=== PATIENT | male | born 1980 | race Caucasian/White ===

== ENCOUNTER → 2017-12-09 10:25 | Outpatient (CLI) | payer BC | END | disposition home or self-care (01) | LOC: D.MRI 10:00 | DX: S83.222A Peripheral tear of medial meniscus, current injury, left knee, initial encounter (principal); X58.XXXA Exposure to other specified factors, initial encounter ==

== ENCOUNTER 2017-12-17 10:03 | Day surgery (SDC) | payer BC ==
[~2017-12-17] VITALS: Ht 188 cm; Wt 108.9 kg
--- NOTE | ~2017-12-17 | OP ---
PATIENT NAME: VARSHA JOHNSON MEDICAL RECORD: [id number] :79 LOCATION:[facility] ADMISSION DATE: SURGEON: SAPNA CERVANTES DO DATE OF OPERATION: 12/17/2017 PROCEDURE PERFORMED: Left knee arthroscopy with partial medial meniscectomy. PREOPERATIVE DIAGNOSIS: Left knee medial meniscal tear. POSTOPERATIVE DIAGNOSIS: Left knee medial meniscal tear. INDICATIONS: Mr. Johnson is a 37-year-old male who has had a twisting injury a few months ago, had popping, catching, locking and giving away of his knee for quite some time. Since then, he was seen by his primary care and sent to me for evaluation. He is tender along the medial joint line with Positive Agustin's and bounce home test. I told him we get an MRI, he likely had a meniscal tear, and we would discuss further. He got an MRI and it indeed showed the medial meniscal tear. The risks and benefits of the procedure of medial meniscectomy versus partial medial meniscectomy versus repair were discussed with him. He was okay with the risks and benefits including infection, bleeding, need for further surgery and other complications. He consented to the procedure. DESCRIPTION OF PROCEDURE: The patient was taken to the operative suite, laid in supine position, given 2 grams Ancef preoperatively. Once 2 grams Ancef were in, a timeout was performed, everyone was in agreement with the correct side, site, patient and procedure. The patient's left lower extremity was prepped and draped in sterile fashion. Incision then began after injections of 0.25% Marcaine with epinephrine of 2.5 mL each were placed into each of the proposed portal sites. The lateral portal was established with an 11-blade scalpel. Scope was entered in the knee. The knee was inspected. Suprapatellar pouch was clean. There were no loose bodies seen, same was the lateral gutter and medial gutter. Once the knee was flexed down, the large meniscal tear was noted, the posterior two-thirds of the medial meniscus had been torn. The posterior half of it was irreparable as it was quite shredded. We then tried to repair the small amount that was left and this was not amenable to repair either. This was chewed out with biter and shaver as was the rest of the posterior most of the meniscus. Small peripheral ring was kept, which was not torn of the medial meniscus. The lateral compartment was then inspected and no tears were seen in that meniscus. ACL was quite taut and inspected as well. The water was then turned off and the suction was turned on and excess fluid was removed from the knee. The portal sites were then closed with 4-0 Monocryl in inverted interrupted fashion with Steri-Strips placed over it. Adaptic, 4 x 4s, ABD, Webril and Madhu wrap were then placed on the knee and a PRITI hose stockinette was placed up to the knee. The patient was awakened and taken to recovery in stable condition. BLOOD LOSS: Minimal. COMPLICATIONS: None. TRANSINT:[id number] Voice Confirmation ID: [id number] DOCUMENT ID: [id number] OPERATIVE REPORT [id number] VARSHA JOHNSON,SAPNA Clark DO at 1544 CC: [id number] DICTATION DATE: 12/17/17 1458 [employer] SUPERINTENDENT: 12/17/17 1519 [facility] [address] [place] [address]
[2017-12-17 10:43] VITALS: BP 155/78; Ht 188 cm; Wt 108.9 kg
[2017-12-17] MEDS ORDERED: PERCOCET 7.5/321 TAB PO (14:52)
[2017-12-17] MEDS ORDERED: KEFLEX500 MG PO (14:53)
== END 2017-12-17 17:30 | disposition home or self-care (01) ==
LOC: D.OPS 10:03 → D.PAN 11:30 → D.OPS 11:30
DX: S83.242A Other tear of medial meniscus, current injury, left knee, initial encounter (principal); X50.1XXA Overexertion from prolonged static or awkward postures, initial encounter; Z01.812 Encounter for preprocedural laboratory examination

== ENCOUNTER → 2018-02-04 11:17 | Outpatient (CLI) | payer BC ==
[2017-12-17 10:43] VITALS: BMI 30.8
[~2018-02-04 11:17] MED LIST: KEFLEX500 MG PO; OXYCODONE-APAP1 T10 PO; PERCOCET 7.5/321 TAB PO; ZOFRAN ODT4 MG/UDTAB PO
== END | disposition home or self-care (01) ==
LOC: D.MRI 11:00
DX: M23.51 Chronic instability of knee, right knee (principal)

== ENCOUNTER 2018-02-15 11:51 | Day surgery (SDC) | payer BC ==
[~2018-02-15] VITALS: Ht 188 cm; Wt 108.9 kg
--- NOTE | ~2018-02-15 | OP ---
PATIENT NAME: VARSHA JOHNSON MEDICAL RECORD: [id number] :79 LOCATION:[facility] ADMISSION DATE: SURGEON: ILYA CERVANTES DO DATE OF OPERATION: 02/15/2018 PROCEDURE PERFORMED: Right knee arthroscopy with partial medial meniscectomy. PREOPERATIVE DIAGNOSIS: Right knee medial meniscal tear. POSTOPERATIVE DIAGNOSIS: Right knee medial meniscal tear. INDICATIONS: Mr. Johnson is a 37-year-old male who had his left knee scoped for meniscal tear a few months ago. His right knee had been bothering him also for quite some time. He had pain, catching, locking, popping and giving way. He felt like he had some laxity in his knee. An MRI was done that showed a large meniscal tear of the medial meniscus and the ACL was intact. I informed him of the risks and benefits of the procedure including infection, bleeding, damage to nerve and vessels, need for further surgery, the fact that he may have a little bit of cartilage damage and due to the meniscectomy, he may develop arthritis sooner than the average person. He was aware of that and signed the consent. SURGEON: Ilya Cervantes DO DESCRIPTION OF PROCEDURE: The patient was taken to the operative suite, laid in supine position. The right lower extremity was prepped and draped in sterile fashion. The patient was given 2 grams Ancef preoperatively. Timeout was performed. Everyone was in agreeance with the correct side, site and patient and procedure. The procedure then began with an 11-blade scalpel. It was used to establishing lateral portal. The trocar was then entered in the knee and the water was turned on and inspection of the knee began. There were no loose bodies in the suprapatellar pouch, medial or lateral gutters. The medial gutter was then entered and the knee was flexed. A large bucket handle meniscus tear was noted. It was detached posteriorly within the medial joint line. The medial portal was then established and the shaver was used to chew out most of it. The portals had to be switched in order to get the last remaining piece, the anterior part of it with a biter and a shaver and then more of the posterior meniscus was shaved and bagged due to being torn. 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 The ACL was then checked and probed and seen to be in good position and taut. The lateral compartment was then entered and the knee was [id number] and the lateral meniscus was in good shape. No tears were seen and the water was turned off. Suction was then turned on to removing the excess water out of the knee. The patient was awakened and taken to recovery in stable condition. Blood loss was minimal. COMPLICATIONS: None. TRANSINT:[id number] Voice Confirmation ID: [id number] DOCUMENT ID: [id number] OPERATIVE REPORT [id number] VARSHA JOHNSON,ILYA Clark DO at 0828 CC: [id number] DICTATION DATE: 02/15/18 1607 [employer] SPECIALIST: 02/15/18 2149 [facility] 02/15/18 [id number] [place] [address]
[~2018-02-15 11:51] MED LIST changes: -OXYCODONE-APAP1 T10 PO; -ZOFRAN ODT4 MG/UDTAB PO
[2018-02-15 14:03] VITALS: BP 133/77; Ht 188 cm; Wt 108.9 kg
[2018-02-15] MEDS ORDERED: OXYCODONE-APAP1 T10 PO (15:04)
[2018-02-15] MEDS ORDERED: ZOFRAN ODT4 MG/UDTAB PO (16:03)
== END 2018-02-15 17:35 | disposition home or self-care (01) ==
LOC: D.OPS 11:51 → D.PAN 16:00 → D.OPS 16:00
DX: S83.211A Bucket-handle tear of medial meniscus, current injury, right knee, initial encounter (principal); X58.XXXA Exposure to other specified factors, initial encounter; Z01.812 Encounter for preprocedural laboratory examination